=== PATIENT | female | born 2000 | race Two or more races ===

== ENCOUNTER 2021-11-19 00:32 | Observation (INO) | payer MEDICAID ==
[2021-11-19] VITALS (10 sets, daily range): BP systolic 111–122; BP diastolic 58–69
[~2021-11-19] VITALS: Ht 160 cm; Wt 77.8 kg
[~2021-11-19 00:32] MED LIST: DOCU-109 PO; IBUP-1060 PO; METF10007 PO
[2021-11-19 01:13] LABS: BASO # 0.1 x10^3/uL (0.0-0.2); BASO % 1 % (0-3); EOS # 0.1 x10^3/uL (0.0-0.7); EOS % 1 % (0-3); HEMATOCRIT 39.3 % (36.0-47.0); HEMOGLOBIN 13.2 g/dL (12.0-15.5); LYMPH # 4.7 x10^3/uL (1.0-4.8); LYMPH % 35 % (24-48); MEAN CORPUSCULAR HEMOGLOBIN 28 pg (25-35); MEAN CORPUSCULAR HGB CONC 34 g/dL (31-37); MEAN CORPUSCULAR VOLUME 82 fL (79-100); MONO # 0.9 x10^3/uL (0.0-1.1); MONO % 6 % (0-9); NEUT # 7.7 x10^3/uL (1.8-7.7); NEUT % 57 % (31-73); PLATELET COUNT 440 x10^3/uL (140-400); RED BLOOD COUNT 4.79 x10^6/uL (3.50-5.40); RED CELL DISTRIBUTION WIDTH 13.5 % (11.5-14.5); WHITE BLOOD COUNT 13.5 x10^3/uL (4.0-11.0)
[2021-11-19 01:15] LABS: BILIRUBIN,URINE NEGATIVE (NEG); CLARITY,URINE CLEAR; COLOR,URINE YELLOW; NITRITE,URINE NEGATIVE (NEG); PROTEIN,URINE NEGATIVE (NEG-TRACE)
[2021-11-19 01:20] LABS: U PREG PATIENT NEGATIVE (NEG)
[2021-11-19 01:27] LABS: CALCIUM 9.3 mg/dL (8.5-10.1); CREATININE 0.6 mg/dL (0.6-1.0); GFR 123.9; POTASSIUM 3.9 mmol/L (3.5-5.1)
[2021-11-19 01:30] LABS: BACTERIA,URINE FEW /HPF (0-FEW); RBC,URINE 0 /HPF (0-2)
[2021-11-19 01:40] LABS: ALBUMIN 4.1 g/dL (3.4-5.0); TOTAL BILIRUBIN 0.2 mg/dL (0.2-1.0); TOTAL PROTEIN 8.3 g/dL (6.4-8.2)
--- NOTE | 2021-11-19 03:19 | PHYS DOC ---
Past Medical History Past Surgical History: No Surgical History Smoking Status: Never Smoker Alcohol Use: None General Adult EDM: Chief Complaint: ABDOMINAL PAIN HPI: HPI: Patient is a 21 year old F who presents with abdominal pain. Pain came on suddenly this afternoon. Describes a sharp intermittent pain, localized to RUQ that radiates laterally to R side. Pain is 8/10 at its worst. Has had multiple episodes of similar pain that resolved spontaneously, last episode was approx 1 month ago. Has not taken anything for the pain. Pt reports nausea, 1 episode of non-bloody emesis. Also reports diarrhea. Denies any recent illness, fever, he adache, chest pain, shortness of breath, urinary symptoms, or rash. No past abdominal surgeries. Review of Systems: Review of Systems: Review of systems: Constitutional symptoms- No fever, no chills. Eyes- No Discharge, No Visual Loss Respiratory symptoms- No shortness of breath, No wheezing, No Dyspnea on Exertion Cardiovascular Systems; No chest pain, No Palpitations, No syncope Gastrointestinal symptoms: Positive abdominal pain, positive nausea, positive v omiting, positive diarrhea. Genitourinary symptoms: No dysuria. Musculoskeletal symptoms: No back pain No extremity pain. NEUROLOGICAL Symptoms: No headache, no generalized weakness; No focal Weakness Skin: No rash. Heart Score: C/O Chest Pain: N/A Risk Factors: Risk Factors: DM, Current or recent (<one month) smoker, HTN, HLP, family history of CAD, obesity. Risk Scores: Score 0 - 3: 2.5% MACE over next 6 weeks - Discharge Home Score 4 - 6: 20.3% MACE over next 6 weeks - Admit for Clinical Observation Score 7 - 10: 72.7% MACE over next 6 weeks - Early Invasive Strategies Allergies: Allergies: Allergies Coded Allergies Type Severity Reaction Last Updated Verified No Known Drug Allergies 05/13/21 No Physical Exam: PE: General: alert, no acute distress. Skin: warm, dry and intact, no erythema, no rash. HENT: bilateral external ears normal, oropharynx moist, nose normal. Head:: Normocephalic, atraumatic. Neck: Trachea midline. Eyes: EOMI, Normal conjunctiva, No drainage CARDIOVASCULAR: Regular rate and rhythm RESPIRATORY: No respiratory distress Back: Full range of motion. MUSCULOSKELETAL: Full range of motion of bilateral upper and lower extremities. GASTROINTESTINAL: Abdomen tender to palpation in RUQ/RLQ, positive Major's sign, normoactive bowel sounds all four quadrants. NEUROLOGICAL: Alert and noted to person, place and time. No neurological deficits observed Psychiatric: Cooperative. Normal judgment Current Patient Data: Labs: Laboratory Tests Test 11/19/21 00:50 11/19/21 01:00 Urine Collection Type Unknown Urine Color Yellow Urine Clarity Clear Urine pH 7.0 (<5.0-8.0) Urine Specific [place] 1.020 (1.000-1.030) Urine Protein Negative mg/dL (NEG-TRACE) Urine Glucose (UA) Negative mg/dL (NEG) Urine Ketones (Stick) Negative mg/dL (NEG) Urine Blood Negative (NEG) Urine Nitrite Negative (NEG) Urine Bilirubin Negative (NEG) Urine Urobilinogen Dipstick 1.0 mg/dL (0.2 mg/dL) Urine Leukocyte Esterase Small (NEG) Urine RBC 0 /HPF (0-2) Urine WBC 1-4 /HPF (0-4) Urine Squamous Epithelial Cells Mod /LPF Urine Bacteria Few /HPF (0-FEW) Urine Mucus Slight /LPF Urine Test Negative (NEG) White Blood Count 13.5 x10^3/uL (4.0-11.0) H Red Blood Count 4.79 x10^6/uL (3.50-5.40) Hemoglobin 13.2 g/dL (12.0-15.5) Hematocrit 39.3 % (36.0-47.0) Mean Corpuscular Volume 82 fL (79-100) Mean Corpuscular Hemoglobin 28 pg (25-35) Mean Corpuscular Hemoglobin Concent 34 g/dL (31-37) Red Cell Distribution Width 13.5 % (11.5-14.5) Platelet Count 440 x10^3/uL (140-400) H Neutrophils (%) (Auto) 57 % (31-73) Lymphocytes (%) (Auto) 35 % (24-48) Monocytes (%) (Auto) 6 % (0-9) Eosinophils (%) (Auto) 1 % (0-3) Basophils (%) (Auto) 1 % (0-3) Neutrophils # (Auto) 7.7 x10^3/uL (1.8-7.7) Lymphocytes # (Auto) 4.7 x10^3/uL (1.0-4.8) Monocytes # (Auto) 0.9 x10^3/uL (0.0-1.1) Eosinophils # (Auto) 0.1 x10^3/uL (0.0-0.7) Basophils # (Auto) 0.1 x10^3/uL (0.0-0.2) Sodium Level 137 mmol/L (136-145) Potassium Level 3.9 mmol/L (3.5-5.1) Chloride Level 103 mmol/L (98-107) Carbon Dioxide Level 25 mmol/L (21-32) Anion Gap 9 (6-14) Blood Urea Nitrogen 8 mg/dL (7-20) Creatinine 0.6 mg/dL (0.6-1.0) Estimated GFR (Cockcroft-Gault) 123.9 BUN/Creatinine Ratio 13 (6-20) Glucose Level 124 mg/dL (70-99) H Calcium Level 9.3 mg/dL (8.5-10.1) Total Bilirubin 0.2 mg/dL (0.2-1.0) Aspartate Amino Transferase (AST) 24 U/L (15-37) Alanine Aminotransferase (ALT) 68 U/L (14-59) H Alkaline Phosphatase 92 U/L (46-116) Total Protein 8.3 g/dL (6.4-8.2) H Albumin 4.1 g/dL (3.4-5.0) Albumin/Globulin Ratio 1.0 (1.0-1.7) Laboratory Tests 11/19/21 01:00 Laboratory Tests 11/19/21 01:00 Vital Signs: Vital Signs Date Time Temp Pulse Resp B/P (MAP) Pulse Ox O2 Delivery O2 Flow Rate FiO2 11/19/21 00:47 98.0 82 18 114/68 (83) 99 Room Air 98.0 EKG: EKG: [] Radiology/Procedures: Radiology/Procedures: [] Impression: HISTORY: Right abdominal pain. TECHNIQUE: Computed tomography of the abdomen and pelvis was performed after the intravenous administration of iodinated contrast. One or more of the following individualized dose reduction techniques were utilized for this examination: 1. Automated exposure control. 2. Adjustment of the mA and/or kV according to patient size. 3. Use of iterative reconstruction technique. COMPARISON: None. FINDINGS: Lung windows through the visualized portions of the bases reveal mild atelectasis. Bone windows reveal no suspicious lesions. Hypoattenuation of the hepatic parenchyma is consistent with mild diffuse hepatic steatosis. There is mild gallbladder wall thickening and slight surrounding pericholecystic edema. There is no biliary dilatation. The pancreas, adrenal glands, spleen and left kidney are unremarkable. There is a 3 mm calculus in the right kidney. There are no pathologically enlarged lymph nodes. An intrauterine device is in expected position. A small amount of free pelvic fluid may be physiologic. The appendix is not inflamed. The colon is decompressed but demonstrates mild wall thickening. IMPRESSION: 1. Gallbladder wall thickening. Correlate with other data to assess for acute cholecystitis. 2. Mild colonic wall thickening may reflect only luminal decompression. Correlate clinically for colitis. 3. Suspect diffuse hepatic steatosis. 4. 3 mm right renal calculus. Electronically signed by: Jerad Baron MD (11/19/2021 5:14 AM) [facility] Course & Med Decision Making: Course & Med Decision Making Pertinent Labs and Imaging studies reviewed. (See chart for details) []Evaluated for chief complaint. CT gb wall thickening cholecystic fluid. Labs normal. Treated with IV fluids and toradol. Pain 1/10 post treatment. US pending. Dosed with Zosyn. Admitted to hospitalist consult to Dr Yarbrough. Marisol Disclaimer: Marisol Disclaimer: This electronic medical record was generated, in whole or in part, using a voice recognition dictation system. Departure Departure Impression: Primary Impression: Abdominal pain Additional Impression: Acute cholecystitis Disposition: ADMITTED INPATIENT Admitting Physician: HIMAdams Condition: STABLE Referrals: NO PCP (PCP) LOLA GORDON DO Nov 19, 2021 03:19
[2021-11-19] MEDS ORDERED: KETOROLAC 30 MG/ML VIAL. IVP ONE (03:30)
[2021-11-19] MEDS ORDERED: ONDANSETRON PF 4 MG/2 ML VIAL. IVP ONE (03:30)
[2021-11-19] MEDS ORDERED: IV NORMAL SALINE 1000ML BAG 1,000 ML IV ONE (03:30)
[2021-11-19] MEDS ORDERED: CONTRAST GIVEN. MC PRN (03:45)
[2021-11-19] MEDS ORDERED: IOHEXOL 300 MG/ML 100ML VIAL. IV ONE (04:00)
--- NOTE | 2021-11-19 05:17 | RAD ---
EXAM: CT ABDOMEN/PELVIS WITH CONTRAST. HISTORY: Right abdominal pain. TECHNIQUE: Computed tomography of the abdomen and pelvis was performed after the intravenous administ ration of iodinated contrast. One or more of the following individualized dose reduction techniques w ere utilized for this examination: 1. Automated exposure control. 2. Adjustment of the mA and/or kV according to patient size. 3. Use of iterative reconstruction technique. COMPARISON: None. FINDINGS: Lung windows through the visualized portions of the bases reveal mild atelectasis. Bone win dows reveal no suspicious lesions. Hypoattenuation of the hepatic parenchyma is consistent with mild diffuse hepatic steatosis. There is mild gallbladder wall thickening and slight surrounding pericholecystic edema. There is no biliary d ilatation. The pancreas, adrenal glands, spleen and left kidney are unremarkable. There is a 3 mm calculus in th e right kidney. There are no pathologically enlarged lymph nodes. An intrauterine device is in expected position. A s mall amount of free pelvic fluid may be physiologic. The appendix is not inflamed. The colon is decom pressed but demonstrates mild wall thickening. IMPRESSION: 1. Gallbladder wall thickening. Correlate with other data to assess for acute cholecystitis. 2. Mild colonic wall thickening may reflect only luminal decompression. Correlate clinically for coli tis. 3. Suspect diffuse hepatic steatosis. 4. 3 mm right renal calculus. Electronically signed by: Jerad Baron MD (11/19/2021 5:14 AM) [facility]
[2021-11-19] MEDS ORDERED: MORPHINE SULFATE 2 MG/ML INJ. IVP PRN (06:00)
[2021-11-19] MEDS ORDERED: ONDANSETRON PF 4 MG/2 ML VIAL. IVP PRN ×2 (06:00→10:30)
[2021-11-19] MEDS ORDERED: PIPERACILLIN/TAZOBACTAM 4.5 GM in IV DEXTROSE 5% 100ML 100 ML IV ONE (06:30)
--- NOTE | 2021-11-19 06:38 | RAD ---
EXAM: RIGHT UPPER QUADRANT ULTRASOUND. HISTORY: Right upper quadrant abdominal pain. Abnormal gallbladder on CT. COMPARISON: Today's CT. FINDINGS: Sonographic evaluation of the right upper quadrant was performed. Hyperechogenicity of the hepatic parenchyma is consistent with diffuse hepatic steatosis. There are n o focal lesions. There are small polyps versus adherent stones within the gallbladder. There is no clear gallbladder w all thickening or pericholecystic fluid. The sales merchandiser notes tenderness over the gallbladder on sca nning. The common duct measures 5 mm. Limited images of the pancreatic head reveal no abnormality. It is unremarkable on CT. The right kidney measures 11.1 cm. Cortical thickness and echogenicity are preserved. There is no hyd ronephrosis. The visualized portions of the abdominal aorta and inferior vena cava are grossly patent and normal i n caliber. IMPRESSION: 1. Small gallstones versus tiny mural polyps. There are no gross changes of acute cholecystitis, but there is a positive sonographic Major sign. Correlate for evidence of infection to further exclude a cute cholecystitis. 2. Diffuse hepatic steatosis. Electronically signed by: Jerad Baron MD (11/19/2021 6:36 AM) [facility]
[2021-11-19] MEDS ORDERED: PROPOFOL 10 MG/ML (20ML) VIAL. IV ONE (10:05)
[2021-11-19] MEDS ORDERED: ONDANSETRON PF 4 MG/2 ML VIAL. ONE (10:05)
[2021-11-19] MEDS ORDERED: fentaNYL PF VIAL 100 MCG/2 ML VIAL ONE (10:05)
[2021-11-19] MEDS ORDERED: DEXAMETHASONE SOD PHOS 4 MG/ML VIAL ONE (10:05)
[2021-11-19] MEDS ORDERED: LIDOCAINE 2% PF 5 ML VIAL. ONE (10:05)
[2021-11-19] MEDS ORDERED: ROCURONIUM 50 MG/5 ML VIAL. ONE (10:05)
[2021-11-19] MEDS ORDERED: SEVOFLURANE 61 TO 120 MINUTES. IH ONE (10:06)
[2021-11-19] MEDS ORDERED: fentaNYL PF VIAL 100 MCG/2 ML VIAL IVP PRN ×2 (10:15)
[2021-11-19] MEDS ORDERED: IV RINGERS,LACTATED 1000ML 1,000 ML IV SCH (10:15)
[2021-11-19] MEDS ORDERED: PROCHLORPERAZINE 10 MG/2 ML VIAL. IVP PRN (10:15)
[2021-11-19] MEDS ORDERED: HYDROmorphone 2 MG/ML INJ. IVP PRN (10:15)
[2021-11-19] MEDS ORDERED: SURGICEL HEMOSTAT 4X8 EACH. ONE (10:24)
[2021-11-19] MEDS ORDERED: BUPIVACAINE-EPI 0.25%-1:200000 MPF 30 ML VIAL. ONE (10:24)
[2021-11-19] MEDS ORDERED: MORPHINE SULFATE 2 MG/ML INJ. IV PRN ×2 (10:30)
[2021-11-19] MEDS ORDERED: ACETAMINOPHEN 325 MG TABLET. PO PRN (10:30)
[2021-11-19] MEDS ORDERED: ELECTROLYTE (NON-ICU) PROTOCOL. MC PRN (10:30)
[2021-11-19] MEDS ORDERED: CALCIUM CARBONATE 500 MG TAB.CHEW PO PRN (10:30)
--- NOTE | 2021-11-19 10:41 | PDOC2 ---
CONSULT Date of Consult Date of Consult DATE: 11/19/21 TIME: 10:38 Reason for Consult Reason for Consult: Right upper quadrant abdominal pain Referring Physician Referring Physician: Donte Identification/Chief Complaint Chief Complaint Right upper quadrant abdominal pain Source Source: Chart review, Patient History of Present Illness Reason for Visit: 21-year-old female who has had a 2-day history of abdominal pain worsening with some nausea. She had a previous episode about a month ago but the pain resolved spontaneously. She came into the emergency department further evaluation CT scan was performed which showed some gallstones and thickened gallbladder wall. Her liver enzymes were all normal afebrile with a normal white count. Ultrasound shows gallstones with a positive Major sign Past Medical History Cardiovascular: No pertinent hx Pulmonary: No pertinent hx GI: No pertinent hx Heme/Onc: No pertinent hx Hepatobiliary: No pertinent hx Psych: No pertinent hx Rheumatologic: No pertinent hx Infectious disease: No pertinent hx ENT: No pertinent hx Renal/: No pertinent hx Endocrine: No pertinent hx Dermatology: No pertinent hx Past Surgical History Past Surgical History: No pertinent history Family History Family History: No Significant Social History No ALCOHOL: rare Drugs: None Lives: with Family Current Problem List Problem List Problems Medical Problems: (1) Abdominal pain Status: Acute (2) Acute cholecystitis Status: Acute Current Medications Current Medications Current Medications Ketorolac Tromethamine (Toradol 30mg Vial) 30 mg 1X ONCE IVP Last administered on 11/19/21at 04:07; Start 11/19/21 at 03:30; Stop 11/19/21 at 03:31; Status DC Ondansetron HCl (Zofran) 4 mg 1X ONCE IVP Last administered on 11/19/21at 04:08; Start 11/19/21 at 03:30; Stop 11/19/21 at 03:31; Status DC Sodium Chloride 1,000 ml @ 1,000 mls/hr 1X ONCE IV Last administered on 11/19/21at 04:05; Start 11/19/21 at 03:30; Stop 11/19/21 at 04:29; Status DC Iohexol (Omnipaque 300 Mg/ml) 75 ml 1X ONCE IV Last administered on 11/19/21at 04:05; Start 11/19/21 at 04:00; Stop 11/19/21 at 04:01; Status DC Info (CONTRAST GIVEN -- Rx MONITORING) 1 each PRN DAILY PRN MC SEE COMMENTS; Start 11/19/21 at 03:45; Stop 11/21/21 at 03:44 Piperacillin Sod/ Tazobactam Sod 4.5 gm/Dextrose 100 ml @ 200 mls/hr 1X ONCE IV Last administered on 11/19/21at 06:28; Start 11/19/21 at 06:30; Stop 11/19/21 at 06:59; Status DC Ondansetron HCl (Zofran) 4 mg PRN Q8HRS PRN IVP NAUSEA/VOMITING 1ST CHOICE; Start 11/19/21 at 06:00; Stop 11/20/21 at 05:59 Morphine Sulfate (Morphine Sulfate) 2 mg PRN Q2HR PRN IVP SEVERE PAIN 7-10; Start 11/19/21 at 06:00; Stop 11/20/21 at 05:59 Fentanyl Citrate (Fentanyl 2ml Vial) 25 mcg PRN Q5MIN PRN IVP MILD PAIN 1-3; Start 11/19/21 at 10:15; Stop 11/20/21 at 10:14 Fentanyl Citrate (Fentanyl 2ml Vial) 50 mcg PRN Q5MIN PRN IVP MODERATE PAIN 4- 6; Start 11/19/21 at 10:15; Stop 11/20/21 at 10:14 Morphine Sulfate (Morphine Sulfate) 1 mg PRN Q10MIN PRN IVP SEVERE PAIN 7-10; Start 11/19/21 at 10:15; Stop 11/20/21 at 10:14 Ringer's Solution 1,000 ml @ 30 mls/hr Q24H IV ; Start 11/19/21 at 10:15; Stop 11/19/21 at 22:14 Hydromorphone HCl (Dilaudid) 0.5 mg PRN Q10MIN PRN IVP SEVERE PAIN 7-10, 2nd CHOICE; Start 11/19/21 at 10:15; Stop 11/20/21 at 10:14 Prochlorperazine Edisylate (Compazine) 5 mg PACU PRN PRN IVP NAUSEA, MRX1; Start 11/19/21 at 10:15; Stop 11/20/21 at 10:14 Propofol (Diprivan) 200 mg STK-MED ONCE IV ; Start 11/19/21 at 10:05; Stop 11/19/21 at 10:05; Status DC Dexamethasone Sodium Phosphate (Decadron) 4 mg STK-MED ONCE .ROUTE ; Start 11/19/21 at 10:05; Stop 11/19/21 at 10:05; Status DC Lidocaine HCl (Lidocaine Pf 2% Vial) 5 ml STK-MED ONCE .ROUTE ; Start 11/19/21 at 10:05; Stop 11/19/21 at 10:05; Status DC Ondansetron HCl (Zofran) 4 mg STK-MED ONCE .ROUTE ; Start 11/19/21 at 10:05; Stop 11/19/21 at 10:05; Status DC Rocuronium Harrison (Zemuron) 50 mg STK-MED ONCE .ROUTE ; Start 11/19/21 at 10:05; Stop 11/19/21 at 10:05; Status DC Fentanyl Citrate (Fentanyl 2ml Vial) 100 mcg STK-MED ONCE .ROUTE ; Start 11/19/21 at 10:05; Stop 11/19/21 at 10:06; Status DC Sevoflurane (Ultane) 60 ml STK-MED ONCE IH ; Start 11/19/21 at 10:06; Stop 11/19/21 at 10:06; Status DC Ondansetron HCl (Zofran) 4 mg PRN Q6HRS PRN IVP NAUSEA/VOMITING; Start 11/19/21 at 10:30 Calcium Carbonate/ Glycine (Tums) 500 mg PRN Q3HRS PRN PO UPSET STOMACH; Start 11/19/21 at 10:30 Info (Non-Icu Electrolyte Protocol) 1 ea PRN DAILY PRN MC SEE COMMENTS; Start 11/19/21 at 10:30 Morphine Sulfate (Morphine Sulfate) 1 mg PRN Q1HR PRN IV MILD PAIN, MODERATE PAIN; Start 11/19/21 at 10:30 Morphine Sulfate (Morphine Sulfate) 2 mg PRN Q1HR PRN IV SEVERE PAIN; Start 11/19/21 at 10:30 Acetaminophen (Tylenol) 650 mg PRN Q6HRS PRN PO Headaches, Temp > 101.5F; Start 11/19/21 at 10:30 Senna/Docusate Sodium (Senna Plus) 1 tab BID PO ; Start 11/19/21 at 21:00 Cellulose (Surgicel Hemostat 4x8) 1 each STK-MED ONCE .ROUTE ; Start 11/19/21 at 10:24; Stop 11/19/21 at 10:24; Status DC Bupivacaine HCl/ Epinephrine Bitart (Sensorcaine-Epi 0.25%-1:[id number] Mpf) 30 ml STK-MED ONCE .ROUTE ; Start 11/19/21 at 10:24; Stop 11/19/21 at 10:24; Status DC Active Scripts Active Ibuprofen 800 Mg Tablet 800 Mg PO PRN Q8HRS PRN Colace (Docusate Sodium) 100 Mg Capsule 100 Mg PO PRN BID PRN Reported Metformin Hcl 1,000 Mg Tablet 1,000 Mg PO BIDWMEALS Allergies Allergies: Coded Allergies: No Known Drug Allergies (Unverified , 05/13/21) ROS Gastrointestinal: Yes Nausea, Yes Abdominal Pain Physical Exam General: Alert, Oriented X3, Cooperative, mild distress HEENT: Atraumatic, EOMI Lungs: Clear to auscultation, Normal air movement Heart: Regular rate, No murmurs Abdomen: Normal bowel sounds, Soft, Other (Tender to palpation right upper quadrant) Extremities: No edema Skin: No significant lesion Neuro: Normal speech Psych/Mental Status: Mental status NL Vitals VITALS Vital Signs Date Time Temp Pulse Resp B/P (MAP) Pulse Ox O2 Delivery O2 Flow Rate FiO2 11/19/21 06:33 70 16 94/48 (63) 98 Room Air 11/19/21 00:47 98.0 98.0 Labs Labs Laboratory Tests Test 11/19/21 00:50 11/19/21 01:00 11/19/21 09:03 Urine Collection Type Unknown Urine Color Yellow Urine Clarity Clear Urine pH 7.0 (<5.0-8.0) Urine Specific [place] 1.020 (1.000-1.030) Urine Protein Negative mg/dL (NEG-TRACE) Urine Glucose (UA) Negative mg/dL (NEG) Urine Ketones (Stick) Negative mg/dL (NEG) Urine Blood Negative (NEG) Urine Nitrite Negative (NEG) Urine Bilirubin Negative (NEG) Urine Urobilinogen Dipstick 1.0 mg/dL (0.2 mg/dL) Urine Leukocyte Esterase Small (NEG) Urine RBC 0 /HPF (0-2) Urine WBC 1-4 /HPF (0-4) Urine Squamous Epithelial Cells Mod /LPF Urine Bacteria Few /HPF (0-FEW) Urine Mucus Slight /LPF Urine Test Negative (NEG) White Blood Count 13.5 x10^3/uL (4.0-11.0) Red Blood Count 4.79 x10^6/uL (3.50-5.40) Hemoglobin 13.2 g/dL (12.0-15.5) Hematocrit 39.3 % (36.0-47.0) Mean Corpuscular Volume 82 fL (79-100) Mean Corpuscular Hemoglobin 28 pg (25-35) Mean Corpuscular Hemoglobin Concent 34 g/dL (31-37) Red Cell Distribution Width 13.5 % (11.5-14.5) Platelet Count 440 x10^3/uL (140-400) Neutrophils (%) (Auto) 57 % (31-73) Lymphocytes (%) (Auto) 35 % (24-48) Monocytes (%) (Auto) 6 % (0-9) Eosinophils (%) (Auto) 1 % (0-3) Basophils (%) (Auto) 1 % (0-3) Neutrophils # (Auto) 7.7 x10^3/uL (1.8-7.7) Lymphocytes # (Auto) 4.7 x10^3/uL (1.0-4.8) Monocytes # (Auto) 0.9 x10^3/uL (0.0-1.1) Eosinophils # (Auto) 0.1 x10^3/uL (0.0-0.7) Basophils # (Auto) 0.1 x10^3/uL (0.0-0.2) Sodium Level 137 mmol/L (136-145) Potassium Level 3.9 mmol/L (3.5-5.1) Chloride Level 103 mmol/L (98-107) Carbon Dioxide Level 25 mmol/L (21-32) Anion Gap 9 (6-14) Blood Urea Nitrogen 8 mg/dL (7-20) Creatinine 0.6 mg/dL (0.6-1.0) Estimated GFR (Cockcroft-Gault) 123.9 BUN/Creatinine Ratio 13 (6-20) Glucose Level 124 mg/dL (70-99) Calcium Level 9.3 mg/dL (8.5-10.1) Total Bilirubin 0.2 mg/dL (0.2-1.0) Aspartate Amino Transf (AST/SGOT) 24 U/L (15-37) Alanine Aminotransferase (ALT/SGPT) 68 U/L (14-59) Alkaline Phosphatase 92 U/L (46-116) Total Protein 8.3 g/dL (6.4-8.2) Albumin 4.1 g/dL (3.4-5.0) Albumin/Globulin Ratio 1.0 (1.0-1.7) Lipase 125 U/L (73-393) SARS-CoV-2 Antigen (Rapid) Negative (NEGATIVE) Laboratory Tests Test 11/19/21 00:50 11/19/21 01:00 11/19/21 09:03 Urine Collection Type Unknown Urine Color Yellow Urine Clarity Clear Urine pH 7.0 (<5.0-8.0) Urine Specific [place] 1.020 (1.000-1.030) Urine Protein Negative mg/dL (NEG-TRACE) Urine Glucose (UA) Negative mg/dL (NEG) Urine Ketones (Stick) Negative mg/dL (NEG) Urine Blood Negative (NEG) Urine Nitrite Negative (NEG) Urine Bilirubin Negative (NEG) Urine Urobilinogen Dipstick 1.0 mg/dL (0.2 mg/dL) Urine Leukocyte Esterase Small (NEG) Urine RBC 0 /HPF (0-2) Urine WBC 1-4 /HPF (0-4) Urine Squamous Epithelial Cells Mod /LPF Urine Bacteria Few /HPF (0-FEW) Urine Mucus Slight /LPF Urine Test Negative (NEG) White Blood Count 13.5 x10^3/uL (4.0-11.0) Red Blood Count 4.79 x10^6/uL (3.50-5.40) Hemoglobin 13.2 g/dL (12.0-15.5) Hematocrit 39.3 % (36.0-47.0) Mean Corpuscular Volume 82 fL (79-100) Mean Corpuscular Hemoglobin 28 pg (25-35) Mean Corpuscular Hemoglobin Concent 34 g/dL (31-37) Red Cell Distribution Width 13.5 % (11.5-14.5) Platelet Count 440 x10^3/uL (140-400) Neutrophils (%) (Auto) 57 % (31-73) Lymphocytes (%) (Auto) 35 % (24-48) Monocytes (%) (Auto) 6 % (0-9) Eosinophils (%) (Auto) 1 % (0-3) Basophils (%) (Auto) 1 % (0-3) Neutrophils # (Auto) 7.7 x10^3/uL (1.8-7.7) Lymphocytes # (Auto) 4.7 x10^3/uL (1.0-4.8) Monocytes # (Auto) 0.9 x10^3/uL (0.0-1.1) Eosinophils # (Auto) 0.1 x10^3/uL (0.0-0.7) Basophils # (Auto) 0.1 x10^3/uL (0.0-0.2) Sodium Level 137 mmol/L (136-145) Potassium Level 3.9 mmol/L (3.5-5.1) Chloride Level 103 mmol/L (98-107) Carbon Dioxide Level 25 mmol/L (21-32) Anion Gap 9 (6-14) Blood Urea Nitrogen 8 mg/dL (7-20) Creatinine 0.6 mg/dL (0.6-1.0) Estimated GFR (Cockcroft-Gault) 123.9 BUN/Creatinine Ratio 13 (6-20) Glucose Level 124 mg/dL (70-99) Calcium Level 9.3 mg/dL (8.5-10.1) Total Bilirubin 0.2 mg/dL (0.2-1.0) Aspartate Amino Transf (AST/SGOT) 24 U/L (15-37) Alanine Aminotransferase (ALT/SGPT) 68 U/L (14-59) Alkaline Phosphatase 92 U/L (46-116) Total Protein 8.3 g/dL (6.4-8.2) Albumin 4.1 g/dL (3.4-5.0) Albumin/Globulin Ratio 1.0 (1.0-1.7) Lipase 125 U/L (73-393) SARS-CoV-2 Antigen (Rapid) Negative (NEGATIVE) Assessment/Plan Assessment/Plan Symptomatic cholelithiasis plan laparoscopic cholecystectomy SAMUEL SHETH MD Nov 19, 2021 10:41
[2021-11-19] MEDS ORDERED: NEOSTIGMINE METHYLSULFATE 5 MG/5 ML SYRINGE. ONE (11:31)
[2021-11-19] MEDS ORDERED: GLYCOPYRROLATE 1 MG/5 ML VIAL. ONE (11:31)
--- NOTE | 2021-11-19 11:32 | PDOC4 ---
Operative Note Operative Note Date: November 192021 at 11:29 AM Preoperative diagnosis: Symptomatic cholelithiasis Postoperative diagnosis: Acute cholecystitis Procedure: Laparoscopic cholecystectomy fluorescein cholangiography Surgeon: Zenon Specimen: Gallbladder Dictation: Patient is 21-year-old speaking female who was mated to the hospital right upper quadrant abdominal pain CT scan showing signs consistent with acute cholecystitis. Procedure of laparoscopic cholecystectomy was explained to the patient detail was benefits were also discussed through bilingual interpreter she seemed to understand and gave a verbal written consent to have the procedure performed. Patient was taken to the operating room placed in the supine position general anesthesia was initiated once patient was sleeping intubated her abdomen was prepped and draped usual sterile fashion using ChloraPrep. Area just below the umbilicus was injected with quarter percent Marcaine with epinephrine incision was made 11 blade scalpel and a varies needle was placed within the abdomen creating pneumoperitoneum once this was complete the millimeter port was placed in a 5 mm camera was placed within the abdomen which was inspected no other abnormalities were noted. 5 mm port was placed in the epigastrium a 5 mm port was placed in the right lateral abdomen and a 5 mm port was placed in the right midabdomen all under direct visualization. The gallbladder was quite distended so aspirator was used to aspirate the gal lbladder contents which were clear consistent with hydrops. Grasper was then grasped on the dome of the gallbladder which was retracted cephalad the infundibulum the gallbladder is grasped and retracted laterally exposing the triangle adherent tissues the triangle were taken down with blunt dissection exposing the cystic duct and cystic artery both were doubly clipped and transect ed the gallbladder is taken off the liver with hook electrocautery placed in Endo Catch bag and removed the umbilicus right upper quadrant was irrigated and suctioned dry hemostasis deemed be appropriate the pneumoperitoneum was reduced all ports were removed the fascial defect at the umbilicus was closed with a [id number] 0 Vicryl sutures. Skin was reapproximated all port sites for subcuticular Monocryl Mastisol Steri-Strips and island dressings were applied. Patient was awakened and extubated in the operating room taken recovery in stable condition all sponge instrument needle counts listed as correct estimated blood loss 10 mL SAMUEL SHETH MD Nov 19, 2021 11:32
[2021-11-19] MEDS ORDERED: MORPHINE SULFATE 2 MG/ML INJ. ONE (12:02)
[2021-11-19] MEDS: MORPHINE SULFATE 2 MG/ML INJ. IVP PRN ×2 (12:05→12:16)
--- NOTE | 2021-11-19 13:33 | PDOC1 ---
History and Physical Date of Service: DOS: DATE: 11/19/21 TIME: 13:30 Chief Complaint: Chief Complain: abd pain History of Present Illness: HPI: Patient is a 21 year old F who presents with abdominal pain. Pain came on suddenly yesterday afternoon. Describes a sharp intermittent pain, localized to RUQ that radiates laterally to R side. Pain is 8/10 at its worst. Has had multiple episodes of similar pain that resolved spontaneously, last episode was approx 1 month ago. Has not taken anything for the pain. Pt reports nausea, 1 episode of non-bloody emesis. Also reports diarrhea. Denies any recent illness, fever, headache, chest pain, shortness of breath, urinary symptoms, or rash. No past abdominal surgeries Emergency room found to have have symptomatic cholelithiasis. Plan for surgical intervention Past Medical/Surgical History: PMH/PSH: None known Allergies: Allergies: Coded Allergies: No Known Drug Allergies (Unverified , 05/13/21) Family History: Family History: Denies knowing any Social History: Social History: Denies alcohol tobacco or drug use Current Medications: Current Medications Current Medications Ketorolac Tromethamine (Toradol 30mg Vial) 30 mg 1X ONCE IVP Last administered on 11/19/21at 04:07; Start 11/19/21 at 03:30; Stop 11/19/21 at 03:31; Status DC Ondansetron HCl (Zofran) 4 mg 1X ONCE IVP Last administered on 11/19/21at 04:08; Start 11/19/21 at 03:30; Stop 11/19/21 at 03:31; Status DC Sodium Chloride 1,000 ml @ 1,000 mls/hr 1X ONCE IV Last administered on 11/19/21at 04:05; Start 11/19/21 at 03:30; Stop 11/19/21 at 04:29; Status DC Iohexol (Omnipaque 300 Mg/ml) 75 ml 1X ONCE IV Last administered on 11/19/21at 04:05; Start 11/19/21 at 04:00; Stop 11/19/21 at 04:01; Status DC Info (CONTRAST GIVEN -- Rx MONITORING) 1 each PRN DAILY PRN MC SEE COMMENTS; Start 11/19/21 at 03:45; Stop 11/21/21 at 03:44 Piperacillin Sod/ Tazobactam Sod 4.5 gm/Dextrose 100 ml @ 200 mls/hr 1X ONCE IV Last administered on 11/19/21at 06:28; Start 11/19/21 at 06:30; Stop 11/19/21 at 06:59; Status DC Ondansetron HCl (Zofran) 4 mg PRN Q8HRS PRN IVP NAUSEA/VOMITING 1ST CHOICE; Start 11/19/21 at 06:00; Stop 11/19/21 at 12:32; Status DC Morphine Sulfate (Morphine Sulfate) 2 mg PRN Q2HR PRN IVP SEVERE PAIN 7-10; St art 11/19/21 at 06:00; Stop 11/19/21 at 12:31; Status DC Fentanyl Citrate (Fentanyl 2ml Vial) 25 mcg PRN Q5MIN PRN IVP MILD PAIN 1-3; Start 11/19/21 at 10:15; Stop 11/20/21 at 10:14 Fentanyl Citrate (Fentanyl 2ml Vial) 50 mcg PRN Q5MIN PRN IVP MODERATE PAIN 4- 6; Start 11/19/21 at 10:15; Stop 11/20/21 at 10:14 Morphine Sulfate (Morphine Sulfate) 1 mg PRN Q10MIN PRN IVP SEVERE PAIN 7-10 Last administered on 11/19/21at 12:16; Start 11/19/21 at 10:15; Stop 11/20/21 at 10:14 Ringer's Solution 1,000 ml @ 30 mls/hr Q24H IV Last administered on 11/19/21at 11:00; Start 11/19/21 at 10:15; Stop 11/19/21 at 22:14 Hydromorphone HCl (Dilaudid) 0.5 mg PRN Q10MIN PRN IVP SEVERE PAIN 7-10, 2nd CHOICE; Start 11/19/21 at 10:15; Stop 11/20/21 at 10:14 Prochlorperazine Edisylate (Compazine) 5 mg PACU PRN PRN IVP NAUSEA, MRX1; Start 11/19/21 at 10:15; Stop 11/20/21 at 10:14 Propofol (Diprivan) 200 mg STK-MED ONCE IV ; Start 11/19/21 at 10:05; Stop 11/19/21 at 10:05; Status DC Dexamethasone Sodium Phosphate (Decadron) 4 mg STK-MED ONCE .ROUTE ; Start 11/19/21 at 10:05; Stop 11/19/21 at 10:05; Status DC Lidocaine HCl (Lidocaine Pf 2% Vial) 5 ml STK-MED ONCE .ROUTE ; Start 11/19/21 at 10:05; Stop 11/19/21 at 10:05; Status DC Ondansetron HCl (Zofran) 4 mg STK-MED ONCE .ROUTE ; Start 11/19/21 at 10:05; Stop 11/19/21 at 10:05; Status DC Rocuronium Evergreen (Zemuron) 50 mg STK-MED ONCE .ROUTE ; Start 11/19/21 at 10:05; Stop 11/19/21 at 10:05; Status DC Fentanyl Citrate (Fentanyl 2ml Vial) 100 mcg STK-MED ONCE .ROUTE ; Start at 10:05; Stop 11/19/21 at 10:06; Status DC Sevoflurane (Ultane) 60 ml STK-MED ONCE IH ; Start 11/19/21 at 10:06; Stop 11/19 at 10:06; Status DC Ondansetron HCl (Zofran) 4 mg PRN Q6HRS PRN IVP NAUSEA/VOMITING; Start 11/19/21 at 10:30 Calcium Carbonate/ Glycine (Tums) 500 mg PRN Q3HRS PRN PO UPSET STOMACH; Start 11/19/21 at 10:30 Info (Non-Icu Electrolyte Protocol) 1 ea PRN DAILY PRN MC SEE COMMENTS; Start 11/19/21 at 10:30 Morphine Sulfate (Morphine Sulfate) 1 mg PRN Q1HR PRN IV MILD PAIN, MODERATE PAIN; Start 11/19/21 at 10:30 Morphine Sulfate (Morphine Sulfate) 2 mg PRN Q1HR PRN IV SEVERE PAIN; Start 11/19/21 at 10:30 Acetaminophen (Tylenol) 650 mg PRN Q6HRS PRN PO Headaches, Temp > 101.5F; Start 11/19/21 at 10:30 Senna/Docusate Sodium (Senna Plus) 1 tab BID PO ; Start 11/19/21 at 21:00 Cellulose (Surgicel Hemostat 4x8) 1 each STK-MED ONCE .ROUTE ; Start 11/19/21 at 10:24; Stop 11/19/21 at 10:24; Status DC Bupivacaine HCl/ Epinephrine Bitart (Sensorcaine-Epi 0.25%-1:711960 Mpf) 30 ml STK-MED ONCE .ROUTE Last administered on 11/19/21at 11:05; Start 11/19/21 at 10:24; Stop 11/19/21 at 10:24; Status DC Neostigmine Evergreen (Neostigmine Methylsulfate) 5 mg STK-MED ONCE .ROUTE ; Start 11/19/21 at 11:31; Stop 11/19/21 at 11:31; Status DC Glycopyrrolate (Robinul) 1 mg STK-MED ONCE .ROUTE ; Start 11/19/21 at 11:31; Stop 11/19/21 at 11:31; Status DC Oxycodone/ Acetaminophen (Percocet 5/325) 1 tab PRN Q4HRS PRN PO PAIN; Start 11/19/21 at 11:45 Ketorolac Tromethamine (Toradol 15mg Vial) 15 mg Q6HRS IV IVP ; Start 11/19/21 at 14:00; Stop 11/20/21 at 13:59 Morphine Sulfate (Morphine Sulfate) 2 mg STK-MED ONCE .ROUTE ; Start 11/19/21 at 12:02; Stop 11/19/21 at 12:02; Status DC Active Scripts Active Ibuprofen 800 Mg Tablet 800 Mg PO PRN Q8HRS PRN Colace (Docusate Sodium) 100 Mg Capsule 100 Mg PO PRN BID PRN Reported Metformin Hcl 1,000 Mg Tablet 1,000 Mg PO BIDWMEALS ROS: Review of Systems Review of System Unless noted in HPI 14 point review of systems was negative Physical Exam: Vital Signs: Vital Signs Date Time Temp Pulse Resp B/P (MAP) Pulse Ox O2 Delivery O2 Flow Rate FiO2 11/19/21 12:25 98.4 78 16 113/46 97 Room Air 98.4 11/19/21 12:05 6.0 Physcial Exam: GEN: Mild distress alert and oriented HEENT: Normal cephalic, atraumatic, external auditory canals are patent EYES: Extraocular muscles are intact, pupil are equally round and reactive to light and accommodation MUSCULOSKELETAL: Well developed , well nourished, good range of motion ENDOCRINE: No thyromegaly was palpated LYMPHATICS: No cervical chain or axillary nodes were noted HEMATOPOIETIC: No bruising NECK: Supple, no JVD, no thyromegaly was noted LUNGS: Clear to auscultation in all lung jordan without rhonchi or wheezing HEART: RRR, S!, S2 present. Peripheral pulses intact, no obvious murmurs noted ABDOMEN: Tender in right upper quadrant EXTREMITIES: Without clubbing, cyanosis, or edema. Pedal pulses intact. Negative Homans sign NEUROLOGIC: Normal speech and tone. A&O x 3, moves all extremities, no obvious focal deficits PSYCHIATRIC: Normal affect, normal mood. Stable SKIN: No ulcerations or rashes, good skin turgor, no jaundice VASCULAR: Good capillary refill, neurovascular bundle appears to be intact Labs: Labs: Laboratory Tests Test 11/19/21 00:50 11/19/21 01:00 11/19/21 09:03 11/19/21 11:47 Urine Collection Type Unknown Urine Color Yellow Urine Clarity Clear Urine pH 7.0 (<5.0-8.0) Urine Specific [place] 1.020 (1.000-1.030) Urine Protein Negative mg/dL (NEG-TRACE) Urine Glucose (UA) Negative mg/dL (NEG) Urine Ketones (Stick) Negative mg/dL (NEG) Urine Blood Negative (NEG) Urine Nitrite Negative (NEG) Urine Bilirubin Negative (NEG) Urine Urobilinogen Dipstick 1.0 mg/dL (0.2 mg/dL) Urine Leukocyte Esterase Small (NEG) Urine RBC 0 /HPF (0-2) Urine WBC 1-4 /HPF (0-4) Urine Squamous Epithelial Cells Mod /LPF Urine Bacteria Few /HPF (0-FEW) Urine Mucus Slight /LPF Urine Test Negative (NEG) White Blood Count 13.5 x10^3/uL (4.0-11.0) Red Blood Count 4.79 x10^6/uL (3.50-5.40) Hemoglobin 13.2 g/dL (12.0-15.5) Hematocrit 39.3 % (36.0-47.0) Mean Corpuscular Volume 82 fL (79-100) Mean Corpuscular Hemoglobin 28 pg (25-35) Mean Corpuscular Hemoglobin Concent 34 g/dL (31-37) Red Cell Distribution Width 13.5 % (11.5-14.5) Platelet Count 440 x10^3/uL (140-400) Neutrophils (%) (Auto) 57 % (31-73) Lymphocytes (%) (Auto) 35 % (24-48) Monocytes (%) (Auto) 6 % (0-9) Eosinophils (%) (Auto) 1 % (0-3) Basophils (%) (Auto) 1 % (0-3) Neutrophils # (Auto) 7.7 x10^3/uL (1.8-7.7) Lymphocytes # (Auto) 4.7 x10^3/uL (1.0-4.8) Monocytes # (Auto) 0.9 x10^3/uL (0.0-1.1) Eosinophils # (Auto) 0.1 x10^3/uL (0.0-0.7) Basophils # (Auto) 0.1 x10^3/uL (0.0-0.2) Sodium Level 137 mmol/L (136-145) Potassium Level 3.9 mmol/L (3.5-5.1) Chloride Level 103 mmol/L (98-107) Carbon Dioxide Level 25 mmol/L (21-32) Anion Gap 9 (6-14) Blood Urea Nitrogen 8 mg/dL (7-20) Creatinine 0.6 mg/dL (0.6-1.0) Estimated GFR (Cockcroft-Gault) 123.9 BUN/Creatinine Ratio 13 (6-20) Glucose Level 124 mg/dL (70-99) Calcium Level 9.3 mg/dL (8.5-10.1) Total Bilirubin 0.2 mg/dL (0.2-1.0) Aspartate Amino Transf (AST/SGOT) 24 U/L (15-37) Alanine Aminotransferase (ALT/SGPT) 68 U/L (14-59) Alkaline Phosphatase 92 U/L (46-116) Total Protein 8.3 g/dL (6.4-8.2) Albumin 4.1 g/dL (3.4-5.0) Albumin/Globulin Ratio 1.0 (1.0-1.7) Lipase 125 U/L (73-393) SARS-CoV-2 Antigen (Rapid) Negative (NEGATIVE) Glucose (Fingerstick) 122 mg/dL (70-99) Laboratory Tests Test 11/19/21 00:50 11/19/21 01:00 11/19/21 09:03 11/19/21 11:47 Urine Collection Type Unknown Urine Color Yellow Urine Clarity Clear Urine pH 7.0 (<5.0-8.0) Urine Specific [place] 1.020 (1.000-1.030) Urine Protein Negative mg/dL (NEG-TRACE) Urine Glucose (UA) Negative mg/dL (NEG) Urine Ketones (Stick) Negative mg/dL (NEG) Urine Blood Negative (NEG) Urine Nitrite Negative (NEG) Urine Bilirubin Negative (NEG) Urine Urobilinogen Dipstick 1.0 mg/dL (0.2 mg/dL) Urine Leukocyte Esterase Small (NEG) Urine RBC 0 /HPF (0-2) Urine WBC 1-4 /HPF (0-4) Urine Squamous Epithelial Cells Mod /LPF Urine Bacteria Few /HPF (0-FEW) Urine Mucus Slight /LPF Urine Test Negative (NEG) White Blood Count 13.5 x10^3/uL (4.0-11.0) Red Blood Count 4.79 x10^6/uL (3.50-5.40) Hemoglobin 13.2 g/dL (12.0-15.5) Hematocrit 39.3 % (36.0-47.0) Mean Corpuscular Volume 82 fL (79-100) Mean Corpuscular Hemoglobin 28 pg (25-35) Mean Corpuscular Hemoglobin Concent 34 g/dL (31-37) Red Cell Distribution Width 13.5 % (11.5-14.5) Platelet Count 440 x10^3/uL (140-400) Neutrophils (%) (Auto) 57 % (31-73) Lymphocytes (%) (Auto) 35 % (24-48) Monocytes (%) (Auto) 6 % (0-9) Eosinophils (%) (Auto) 1 % (0-3) Basophils (%) (Auto) 1 % (0-3) Neutrophils # (Auto) 7.7 x10^3/uL (1.8-7.7) Lymphocytes # (Auto) 4.7 x10^3/uL (1.0-4.8) Monocytes # (Auto) 0.9 x10^3/uL (0.0-1.1) Eosinophils # (Auto) 0.1 x10^3/uL (0.0-0.7) Basophils # (Auto) 0.1 x10^3/uL (0.0-0.2) Sodium Level 137 mmol/L (136-145) Potassium Level 3.9 mmol/L (3.5-5.1) Chloride Level 103 mmol/L (98-107) Carbon Dioxide Level 25 mmol/L (21-32) Anion Gap 9 (6-14) Blood Urea Nitrogen 8 mg/dL (7-20) Creatinine 0.6 mg/dL (0.6-1.0) Estimated GFR (Cockcroft-Gault) 123.9 BUN/Creatinine Ratio 13 (6-20) Glucose Level 124 mg/dL (70-99) Calcium Level 9.3 mg/dL (8.5-10.1) Total Bilirubin 0.2 mg/dL (0.2-1.0) Aspartate Amino Transf (AST/SGOT) 24 U/L (15-37) Alanine Aminotransferase (ALT/SGPT) 68 U/L (14-59) Alkaline Phosphatase 92 U/L (46-116) Total Protein 8.3 g/dL (6.4-8.2) Albumin 4.1 g/dL (3.4-5.0) Albumin/Globulin Ratio 1.0 (1.0-1.7) Lipase 125 U/L (73-393) SARS-CoV-2 Antigen (Rapid) Negative (NEGATIVE) Glucose (Fingerstick) 122 mg/dL (70-99) Assessment/Plan Assessment/Plan symptomatic cholelithiasis -Plan for surgical intervention today -NPO. Advance diet as tolerated after surgery -Pain meds as needed -No home meds resumed -Okay to hold off DVT prophylaxis -If can tolerate diet likely discharge tomorrow Justifications for Admission Other Justification CATALINO RIVERA MD Nov 19, 2021 13:33
[2021-11-19] MEDS ORDERED: KETOROLAC 15 MG/ML VIAL. IVP SCH (14:00)
[2021-11-19] MEDS: KETOROLAC 30 MG/ML VIAL. IVP SCH ×2 (14:32→21:27)
[2021-11-19] MEDS ORDERED: FLU VACC QUAD 21-22 (6MOS+) PF 0.5 ML SYRINGE. VAX IM ONE (16:30)
[2021-11-19] MEDS: oxyCODONE/APAP 5/325 1 TAB TABLET PO PRN ×2 (17:45→21:28)
[2021-11-19] MEDS: SENNOSIDES/DOCUSATE 8.6/50MG TABLET. PO SCH (21:00)
[2021-11-20 01:30] VITALS: BP 98/49
[2021-11-20] MEDS: KETOROLAC 30 MG/ML VIAL. IVP SCH (04:02)
[2021-11-20 06:00] VITALS: BP 99/54
[2021-11-20] MEDS: oxyCODONE/APAP 5/325 1 TAB TABLET PO PRN (07:20)
[2021-11-20 07:21] VITALS: BP 100/51
--- NOTE | 2021-11-20 09:35 | PDOC ---
SURGICAL PROGRESS NOTE DATE: 11/20/21 TIME: 09:33 Subjective spoke with patient using bdc manager phone overall feels better no nausea, tolerating diet Vital Signs Vital Signs Date Time Temp Pulse Resp B/P (MAP) Pulse Ox O2 Delivery O2 Flow Rate FiO2 11/20/21 07:50 16 97 Room Air 6.0 11/20/21 07:21 97.6 69 100/51 (67) 97.6 I&O Intake and Output 11/20/21 07:00 Intake Total 1860 ml Output Total 2335 ml Balance -475 ml Intake Oral 360 ml IV Total 1500 ml Output Urine Total 2325 ml Estimated Blood Loss 10 ml General: Alert, Oriented X3, Cooperative Abdomen: Soft, Other (ND, lap dressings dry) Labs Laboratory Tests Test 11/19/21 00:50 11/19/21 01:00 11/19/21 09:03 11/19/21 11:47 Urine Collection Type Unknown Urine Color Yellow Urine Clarity Clear Urine pH 7.0 (<5.0-8.0) Urine Specific [place] 1.020 (1.000-1.030) Urine Protein Negative mg/dL (NEG-TRACE) Urine Glucose (UA) Negative mg/dL (NEG) Urine Ketones (Stick) Negative mg/dL (NEG) Urine Blood Negative (NEG) Urine Nitrite Negative (NEG) Urine Bilirubin Negative (NEG) Urine Urobilinogen Dipstick 1.0 mg/dL (0.2 mg/dL) Urine Leukocyte Esterase Small (NEG) Urine RBC 0 /HPF (0-2) Urine WBC 1-4 /HPF (0-4) Urine Squamous Epithelial Cells Mod /LPF Urine Bacteria Few /HPF (0-FEW) Urine Mucus Slight /LPF Urine Test Negative (NEG) White Blood Count 13.5 x10^3/uL (4.0-11.0) Red Blood Count 4.79 x10^6/uL (3.50-5.40) Hemoglobin 13.2 g/dL (12.0-15.5) Hematocrit 39.3 % (36.0-47.0) Mean Corpuscular Volume 82 fL (79-100) Mean Corpuscular Hemoglobin 28 pg (25-35) Mean Corpuscular Hemoglobin Concent 34 g/dL (31-37) Red Cell Distribution Width 13.5 % (11.5-14.5) Platelet Count 440 x10^3/uL (140-400) Neutrophils (%) (Auto) 57 % (31-73) Lymphocytes (%) (Auto) 35 % (24-48) Monocytes (%) (Auto) 6 % (0-9) Eosinophils (%) (Auto) 1 % (0-3) Basophils (%) (Auto) 1 % (0-3) Neutrophils # (Auto) 7.7 x10^3/uL (1.8-7.7) Lymphocytes # (Auto) 4.7 x10^3/uL (1.0-4.8) Monocytes # (Auto) 0.9 x10^3/uL (0.0-1.1) Eosinophils # (Auto) 0.1 x10^3/uL (0.0-0.7) Basophils # (Auto) 0.1 x10^3/uL (0.0-0.2) Sodium Level 137 mmol/L (136-145) Potassium Level 3.9 mmol/L (3.5-5.1) Chloride Level 103 mmol/L (98-107) Carbon Dioxide Level 25 mmol/L (21-32) Anion Gap 9 (6-14) Blood Urea Nitrogen 8 mg/dL (7-20) Creatinine 0.6 mg/dL (0.6-1.0) Estimated GFR (Cockcroft-Gault) 123.9 BUN/Creatinine Ratio 13 (6-20) Glucose Level 124 mg/dL (70-99) Calcium Level 9.3 mg/dL (8.5-10.1) Total Bilirubin 0.2 mg/dL (0.2-1.0) Aspartate Amino Transf (AST/SGOT) 24 U/L (15-37) Alanine Aminotransferase (ALT/SGPT) 68 U/L (14-59) Alkaline Phosphatase 92 U/L (46-116) Total Protein 8.3 g/dL (6.4-8.2) Albumin 4.1 g/dL (3.4-5.0) Albumin/Globulin Ratio 1.0 (1.0-1.7) Lipase 125 U/L (73-393) SARS-CoV-2 Antigen (Rapid) Negative (NEGATIVE) Glucose (Fingerstick) 122 mg/dL (70-99) Laboratory Tests Test 11/19/21 11:47 Glucose (Fingerstick) 122 mg/dL (70-99) Problem List Problems Medical Problems: (1) Abdominal pain Status: Acute (2) Acute cholecystitis Status: Acute Assessment/Plan s/p lap castro ok to dc home FU 2 weeks Justicifation of Admission Dx: Justifications for Admission: Justification of Admission Dx: Yes Comments: cholecystitis JCAK MATA APRN Nov 20, 2021 09:35
[2021-11-20] MEDS ORDERED: OXYC1TAB15 PO (09:38)
--- NOTE | 2021-11-20 10:05 | PDOC3 ---
Discharge Summary Visit Information Date of Admission: Nov 19, 2021 Date of Discharge: Nov 20, 2021 Final Diagnosis Symptomatic cholelithiasis Acute cholecystitis BMI 30.4 Problems Medical Problems: (1) Abdominal pain Status: Acute (2) Acute cholecystitis Status: Acute Brief Hospital Course Allergies Allergies Coded Allergies Type Severity Reaction Last Updated Verified No Known Drug Allergies 05/13/21 No Vital Signs Vital Signs Date Time Temp Pulse Resp B/P (MAP) Pulse Ox O2 Delivery O2 Flow Rate FiO2 11/20/21 07:50 16 97 Room Air 6.0 11/20/21 07:21 97.6 69 100/51 (67) 97.6 Lab Results Laboratory Tests Test 11/19/21 00:50 11/19/21 01:00 11/19/21 09:03 11/19/21 11:47 Urine Collection Type Unknown Urine Color Yellow Urine Clarity Clear Urine pH 7.0 (<5.0-8.0) Urine Specific [place] 1.020 (1.000-1.030) Urine Protein Negative mg/dL (NEG-TRACE) Urine Glucose (UA) Negative mg/dL (NEG) Urine Ketones (Stick) Negative mg/dL (NEG) Urine Blood Negative (NEG) Urine Nitrite Negative (NEG) Urine Bilirubin Negative (NEG) Urine Urobilinogen Dipstick 1.0 mg/dL (0.2 mg/dL) Urine Leukocyte Esterase Small (NEG) Urine RBC 0 /HPF (0-2) Urine WBC 1-4 /HPF (0-4) Urine Squamous Epithelial Cells Mod /LPF Urine Bacteria Few /HPF (0-FEW) Urine Mucus Slight /LPF Urine Test Negative (NEG) White Blood Count 13.5 x10^3/uL (4.0-11.0) Red Blood Count 4.79 x10^6/uL (3.50-5.40) Hemoglobin 13.2 g/dL (12.0-15.5) Hematocrit 39.3 % (36.0-47.0) Mean Corpuscular Volume 82 fL (79-100) Mean Corpuscular Hemoglobin 28 pg (25-35) Mean Corpuscular Hemoglobin Concent 34 g/dL (31-37) Red Cell Distribution Width 13.5 % (11.5-14.5) Platelet Count 440 x10^3/uL (140-400) Neutrophils (%) (Auto) 57 % (31-73) Lymphocytes (%) (Auto) 35 % (24-48) Monocytes (%) (Auto) 6 % (0-9) Eosinophils (%) (Auto) 1 % (0-3) Basophils (%) (Auto) 1 % (0-3) Neutrophils # (Auto) 7.7 x10^3/uL (1.8-7.7) Lymphocytes # (Auto) 4.7 x10^3/uL (1.0-4.8) Monocytes # (Auto) 0.9 x10^3/uL (0.0-1.1) Eosinophils # (Auto) 0.1 x10^3/uL (0.0-0.7) Basophils # (Auto) 0.1 x10^3/uL (0.0-0.2) Sodium Level 137 mmol/L (136-145) Potassium Level 3.9 mmol/L (3.5-5.1) Chloride Level 103 mmol/L (98-107) Carbon Dioxide Level 25 mmol/L (21-32) Anion Gap 9 (6-14) Blood Urea Nitrogen 8 mg/dL (7-20) Creatinine 0.6 mg/dL (0.6-1.0) Estimated GFR (Cockcroft-Gault) 123.9 BUN/Creatinine Ratio 13 (6-20) Glucose Level 124 mg/dL (70-99) Calcium Level 9.3 mg/dL (8.5-10.1) Total Bilirubin 0.2 mg/dL (0.2-1.0) Aspartate Amino Transf (AST/SGOT) 24 U/L (15-37) Alanine Aminotransferase (ALT/SGPT) 68 U/L (14-59) Alkaline Phosphatase 92 U/L (46-116) Total Protein 8.3 g/dL (6.4-8.2) Albumin 4.1 g/dL (3.4-5.0) Albumin/Globulin Ratio 1.0 (1.0-1.7) Lipase 125 U/L (73-393) SARS-CoV-2 Antigen (Rapid) Negative (NEGATIVE) Glucose (Fingerstick) 122 mg/dL (70-99) Laboratory Tests Test 11/19/21 11:47 Glucose (Fingerstick) 122 mg/dL (70-99) Brief Hospital Course Ms. Aragon is a 21 old admit with acute RUQ pain, taken to OR for acute castro Procedure: Laparoscopic cholecystectomy fluorescein cholangiography on 11/[address] Yarbrough f/u surgery team dc home Discharge Information Condition at Discharge: Improved Follow Up: Weeks Disposition/Orders: D/C to Home Scheduled PRN Docusate Sodium (Colace) 100 Mg Capsule, 100 MG PO PRN BID PRN for CONSTIPATION, #30 Ref 2 Prescribed by: KALYAN ORR MD on 05/17/21 0940 Oxycodone/Apap 5-325 (Percocet 5-325 Mg Tablet ) 1 Each Tablet, 1 TAB PO PRN Q4HRS PRN for PAIN, #20 Ref 0 Prescribed by: Vesna Frost on 11/20/21 0938 Discontinued Medications Ibuprofen (Ibuprofen) 800 Mg Tablet, 800 MG PO PRN Q8HRS PRN for INFLAMMATION, #30 Ref 2 Prescribed by: KALYAN ORR MD on 05/17/21 0940 Metformin Hcl (Metformin Hcl) 1,000 Mg Tablet, 1,000 MG PO BIDWMEALS for Gestational Diabetes, (Reported) Entered as Reported by: LEIGH STEWART on 05/14/21 1310 Patient Instructions Patient Instructions pt seen face to face khmer speaking, RN helped with translation Justicifation of Admission Dx: Justifications for Admission: Justification of Admission Dx: Yes ROSALIE CLIFFORD MD Nov 20, 2021 10:05
[2021-11-20] MEDS: SENNOSIDES/DOCUSATE 8.6/50MG TABLET. PO SCH (10:44)
[2021-11-20 12:05] VITALS: BP 111/58
--- NOTE | 2021-11-20 12:10 | NUR ---
Pt. discharges to home at this time via wheelchair. VSS.
== END 2021-11-20 12:05 | disposition home or self-care (01) ==
LOC: ER 00:32 → ED HOLD 05:49 → 3 SO LND 07:19 → ED HOLD 10:39 → 3 SO LND 12:30
PROVIDERS: ADMIT Internal Medicine; ATTEND Internal Medicine
DX: K80.20 Calculus of gallbladder without cholecystitis without obstruction (principal); Z20.822 Contact with and (suspected) exposure to COVID-19; N20.0 Calculus of kidney; K80.00 Calculus of gallbladder with acute cholecystitis without obstruction; Z68.30 Body mass index [BMI] 30.0-30.9, adult; Z23 Encounter for immunization; Z71.85 Encounter for immunization safety counseling; Z79.899 Other long term (current) drug therapy; Z98.890 Other specified postprocedural states
CPT/HCPCS: 36415; 47563; 74177; 76705; 80053; 81001; 81025; 82962; 83690; 85025; 87086; 87426; 90471; 90686; 96361; 96365; 96375; 96376; 99285; A4364; A4930; G0378; J1100; J1885; J2270; J2405; J2543; J2704; J2710; J3010; J3490; J7030; J7060; J7120; Q9967; U0003; U0005; A4222; A4657; G0379